=== PATIENT | male | born 1955 | race Asian ===

== ENCOUNTER 2017-11-28 11:23 | Emergency (ER) | payer MEDICAID ==
[~2017-11-28] VITALS: Ht 182.9 cm; Wt 88.5 kg
[2017-11-28 11:30] VITALS: BP_SYST 141
[2017-11-28] MEDS ORDERED: fentaNYL CITRATE/PF 100 MCG/2 ML AMP IVP ONE (13:30)
[2017-11-28] MEDS ORDERED: CEFAZOLIN 1 GM IVPB PREMIX 50 ML IV ONE (13:30)
[2017-11-28] MEDS ORDERED: SODIUM BICARBONATE 8.4% VIAL 50 MEQ/50 ML VIAL INJ ONE (13:45)
[2017-11-28] MEDS ORDERED: LIDOCAINE/EPI 2% 1:100000 20 ML VIAL INJ ONE (13:45)
[2017-11-28 14:48] VITALS: BP_SYST 140
== END 2017-11-28 14:48 | disposition home or self-care (01) ==
LOC: SED 11:23
DX: L02.212 Cutaneous abscess of back [any part, except buttock and flank] (principal); R03.0 Elevated blood-pressure reading, without diagnosis of hypertension
CPT/HCPCS: 10060; 36415; 87040; 96365; 96375; 99284; J0690; J3010

== ENCOUNTER 2017-12-03 10:49 | Emergency (ER) | payer MEDICAID ==
[~2017-12-03] VITALS: Ht 182.9 cm; Wt 88.5 kg
[2017-12-03 10:55] VITALS: BP_SYST 118
[2017-12-03 11:11] VITALS: BP_SYST 119
== END 2017-12-03 11:11 | disposition home or self-care (01) ==
LOC: SED 10:49
DX: S41.012D Laceration without foreign body of left shoulder, subsequent encounter (principal); X58.XXXD Exposure to other specified factors, subsequent encounter
CPT/HCPCS: 99283